=== PATIENT | female | born 2000 | race Two or more races ===

== ENCOUNTER 2024-11-02 13:27 | Emergency (ER) | payer MEDICAID, SELFPAY ==
[2024-11-02 13:29] VITALS: BMI 31.6
[2024-11-02 13:35] VITALS: BP 111/70; PULSE 88; RESP 18; TEMP 36.9; O2SAT 99
--- NOTE | 2024-11-02 13:44 | PD.EDNV ---
Nausea/Vomit./Diarrhea-RME/HPI General Chief complaint: Nausea/Vomiting/Diarrhea Stated complaint: DIARRHEA, VOMITING, DECREASE URINATION Time Seen by Provider: 11/02/24 13:50 Source: patient Arrival date/time: 11/02/24 13:27 24-year-old female with no known medical history presents to the emergency room with a chief complaint of diarrhea and vomiting x 2 days. Patient states she is also had a decreased urine output. Patient denies any abdominal pain or dysuria. Mode of arrival: ambulatory Limitations: no limitations Related Data Home Medications ?Medication ?Instructions ?Recorded ?Confirmed buspirone 10 mg tablet 10 mg PO TID 12/10/19 03/07/20 divalproex 500 mg tablet,extended 500 mg PO BID 12/10/19 03/07/20 release 24 hr (Depakote ER) fluoxetine 40 mg capsule 40 mg PO QDAY 12/10/19 03/07/20 aripiprazole 30 mg tablet tab 06/29/22 aspirin 81 mg tablet,delayed tab 06/29/22 release buspirone 30 mg tablet tab 06/29/22 folic acid 1 mg tablet tab 06/29/22 lamotrigine 150 mg tablet tab 06/29/22 nitrofurantoin cap 06/29/22 monohydrate/macrocrystals 100 mg capsule vits no.126-ferrous fum tab 06/29/22 28 mg iron-folic acid 800 mcg tablet (Classic ) Previous Rx's ?Medication ?Instructions ?Recorded famotidine 20 mg tablet 20 mg PO QDAY #10 tabs 02/01/24 nitrofurantoin 100 mg PO Q12H 5 days #10 caps 11/02/24 monohydrate/macrocrystals 100 mg capsule (Macrobid) ondansetron 4 mg disintegrating 4 mg PO Q8H PRN nausea and 11/02/24 tablet vomiting #14 tabs Allergies Allergy/AdvReac Type Severity Reaction Status Date / Time Influenza Virus Vaccines Allergy Severe Hives Verified 11/02/24 13:28 Review of Systems Review of Systems Systems Reviewed: All systems reviewed, normal except as documented Constitutional Constitutional: Reports system reviewed and no additional complaints, except as documented, Denies fatigue, Denies fever(s), Denies headache(s) and Denies weakness Eyes Eyes: Reports system reviewed and no additional complaints, except as documented, Denies blurry vision and Denies change in vision ENT Ears, Nose, Mouth, and Throat: Reports system reviewed and no additional complaints, except as documented, Denies otalgia, Denies headache(s), Denies nasal congestion, Denies throat swelling and Denies vertigo Cardiovascular Cardiovascular: Reports system reviewed and no additional complaints, except as documented, Denies chest pain, Denies dyspnea and Denies dyspnea on exertion Respiratory Respiratory: Reports system reviewed and no additional complaints, except as documented, Denies chest congestion, Denies cough, Denies dyspnea, Denies dyspnea on exertion and Denies wheezing Gastrointestinal Gastrointestinal: Reports system reviewed and no additional complaints, except as documented, Denies abdominal pain, Denies cramping, Reports diarrhea, Reports nausea and Reports vomiting Genitourinary Genitourinary: Reports system reviewed and no additional complaints, except as documented, Denies abnormal vaginal bleeding, Denies hematuria, Denies pelvic pain and Denies vaginal discharge Musculoskeletal Musculoskeletal: Reports system reviewed and no additional complaints, except as documented and Denies back pain Integumentary/Breasts Skin/Breast: Reports system reviewed and no additional complaints, except as documented and Denies wounds Neurologic Neurologic: Reports system reviewed and no additional complaints, except as documented, Denies confusion, Denies headache(s), Denies lack of coordination, Denies vertigo and Denies weakness Psychiatric Psychiatric: Reports system reviewed and no additional complaints, except as documented, Denies anxiety, Denies confusion, Denies depression, Denies paranoia, Denies suicidal ideation and Denies tactile hallucinations Endocrine Endocrine: Reports system reviewed and no additional complaints, except as documented and Denies fatigue Hematologic/Lymphatic Hematologic/Lymphatic: Reports system reviewed and no additional complaints, except as documented and Denies lymphadenopathy Allergic/Immunologic Allergic/Immunologic: Reports system reviewed and no additional complaints, except as documented, Denies throat swelling, Denies urticaria and Denies wheezing Past Medical History Past Medical History NEUROLOGIC: Negative Neurological Disorders or Seizures CARDIAC: Negative Cardiac Disorders or Congestive Heart Failure RESPIRATORY: Negative Chronic Obstructive Pulmonary Disease (COPD) or Asthma GASTROINTESTINAL: Positive Gastrointestinal Disorders, Gall Bladder Disease (leaking gallbladder) and Gastroesophageal Reflux Disease GENITOURINARY: Negative Genitourinary Disorders or Renal Disease REPRODUCTIVE: Negative Endometriosis, Genital Herpes, Gonorrhea, Pelvic Inflammatory Disease, Previous Pregnancies, Syphilis or Uterine Prolapse MUSCULOSKELETAL: Negative Musculoskeletal Disorders ENDOCRINE: Negative Endocrine Disorders, Diabetes Mellitus Type 1 or Diabetes Mellitus Type 2 HEMATOLOGIC: Positive Blood Disorders and Anemia; Negative Leukemia, Hemophilia, Thalassemia, Sickle Cell Disease or Clotting Problems PSYCHO/SOCIAL: Positive Psychiatric Problems, Depression and Anxiety OTHER HISTORY: Negative Hospitalization, Autoimmune Disease, Down Syndrome, Developmental Delay, Shingles, Falls, Blood Transfusions or Anesthesia Reactions Family History FAMILY HISTORY: Positive Family Psychiatric Problems (depression-paternal granmother) and Family Gastrointestinal Problems (ulcertive colitis-sister); Negative Family Respiratory Disorders, Family Cardiac Disorders, Family Cancer, Family Surgery or Family Anesthesia Reaction Surgical History SURGICAL: Negative Section Social History SMOKING STATUS: Never smoker SECOND HAND EXPOSURE: No SUBSTANCE USE: marijuana (mother states she hasnt had any etoh since being on probation ) ED Exam General Limitations: Present no limitations General appearance: Present alert and in no apparent distress Head Head exam: Present atraumatic Eye Eye exam: Present normal appearance, PERRL and EOMI ENT ENT exam: Present normal exam, normal oropharynx and mucous membranes moist Neck Neck exam: Present normal inspection, full ROM and trachea midline Chest Chest inspection: Present normal inspection and symmetric chest wall rise Respiratory Respiratory exam: Present normal lung sounds bilaterally Cardiovascular Cardiovascular exam: Present regular rate, normal rhythm and normal heart sounds Abdominal Exam Abdominal exam: Present soft and normal bowel sounds; Absent distention, tenderness, guarding, rebound or rigidity Extremities Exam Extremities exam: Present normal inspection and full ROM Back Exam Back exam: Present normal inspection and full ROM Neurological Exam Neurological exam: Present alert, oriented X3 and CN II-XII intact Psychiatric Psychiatric exam: Present normal affect and normal mood Skin Skin exam: Present warm, dry, intact and normal color Course Quality Measures none Orders Category Date Time Status CBC Stat Lab 11/02/24 13:49 Completed CMP [Comprehensive Metabolic Panel] Stat Lab 11/02/24 13:49 Completed UA, C/S IF [Urinalysis, C/S if Indicated] Stat Lab 11/02/24 14:24 Completed Ondansetron Odt [Zofran Odt] Med 11/02/24 13:44 Discontinued 4 mg PO X1 ONE Vital Signs Vital signs: Vital Signs Temperature 98.5 F 11/02/24 13:35 Pulse Rate 88 11/02/24 13:35 Respiratory Rate 18 11/02/24 13:35 Blood Pressure 111/70 11/02/24 13:35 Pulse Oximetry (%) 99 11/02/24 13:35 Oxygen Delivery Method Room Air 11/02/24 13:35 O2 saturation 99% within normal limits Nausea/Vomiting/Diarrhea MDM Narrative MDM Narrative:: 24-year-old female with no known medical history presents to the emergency room with a chief complaint of diarrhea and vomiting x 2 days. Patient states she is also had a decreased urine output. Patient denies any abdominal pain or dysuria. Clinically the patient appears nontoxic and in no apparent distress Physical examination shows a soft nontender abdomen with active bowel sounds to all 4 quadrants. The patient is complaining of vomiting. Zofran was given to the patient the patient was reevaluated in 1 hour with significant improvement to her symptoms. The urinalysis shows a urinary tract infection. Antibiotics are sent to the patient's pharmacy the patient was educated to follow-up with primary care provider and return to the emergency room for any evidence of worsening signs or symptoms Patient data External records reviewed:: [facility] previous records Clinical information provided by:: patient Social determinants that could affect healthcare access:: none Patient has the following chronic illnesses:: No chronic illness How is presenting disease/condition affected by chronic disease/condition?: no chronic disease Evaluation data The following diagnostics were reviewed and interpreted by me:: lab results and radiology exam(s) Lab and/or radiology exams considered but not ordered:: Labs and radiology exams considered and ordered Interpretation Summary: N/A Medications / Prescriptions Medications / Prescriptions considered but not ordered:: Medication given Medication administrations:: Medication Administration History Discontinued Medications Ondansetron HCl (Ondansetron Odt 4 Mg Tabrap) 4 mg PO X1 ONE; Protocol Stop: 11/02/24 13:45 Last Admin: 11/02/24 13:52 Dose: 4 mg Documented By: Medication given Consultations Consultation(s) initiated? (list below): No Diagnosis Nausea Differential Diagnosis: traveler's diarrhea, food poisoning, gastroenteritis, drug-induced nausea and vomiting, dehydration and other (Urinary tract infection) Most likely diagnosis given after review of the tests above:: Urinary tract infection Admission Indicated Admission indicated?: not indicated Admission Request Was there a request for admission?: No Disposition Plan Disposition Plan: Discharge Discharge Attestation Discharge Attestation: The patient and all family members were given an opportunity to ask questions and understood the discharge instructions. Discharge instructions specifically effects, indications for sooner follow up or return to the emergency department, and the expected course of current diagnosis. Patient condition: Stable Discharge Plan Plan Patient Disposition: HOME (Self Care) Disposition Comment: Stable Prescriptions/Referrals Prescriptions/Med Rec: New ondansetron 4 mg tablet,disintegrating 4 mg PO Q8H PRN (Reason: nausea and vomiting) Qty: 14 0RF nitrofurantoin monohyd/m-cryst [Macrobid] 100 mg capsule 100 mg PO Q12H 5 Days Qty: 10 0RF Rx Instructions: must administer with a meal/food No Action fluoxetine 40 mg Capsule 40 mg PO QDAY buspirone 10 mg Tablet 10 mg PO TID divalproex [Depakote ER] 500 mg Tablet Extended Release 24 Hr 500 mg PO BID lamotrigine 150 mg tablet Patient Comments: TAKE 1 TABLET BY MOUTH EVERY DAY aspirin 81 mg tablet,delayed release (DR/EC) Patient Comments: TAKE 1 TABLET BY MOUTH EVERY DAY buspirone 30 mg tablet folic acid 1 mg tablet aripiprazole 30 mg tablet Patient Comments: TAKE 1 TABLET BY MOUTH EVERY DAY nitrofurantoin monohyd/m-cryst 100 mg capsule Classic 28 mg iron- 800 mcg tablet Patient Comments: TAKE 1 TABLET BY MOUTH EVERY DAY DIRECTED famotidine 20 mg tablet 20 mg PO QDAY Qty: 10 0RF Referrals: Bridger Barnett PA-C [Primary Care Provider] - In 1 week Problem List Clinical Impression: Urinary tract infection Patient/Caregiver Discharge Instructions Education Materials: ED CYSTITIS Female Adult Additional Instructions: Please follow-up with your primary care provider in the next 24 to 48 hours. Your blood work was negative for any acute findings or any signs of dehydration. Medication was sent to your pharmacy to help you with your vomiting. Your urinalysis was positive for urinary tract infection. Antibiotics are sent to your pharmacy please pick them up and take them as indicated. For any evidence of worsening signs or symptoms please return to the emergency room immediately Print Language: Cymro Stand Alone Forms: Nany Award Info., Patient Portal Info Letter ETHAN/MEREDITH Supervising Physician MIKE Supervising Physician: Dr Fam
[2024-11-02] MEDS: ONDANSETRON ODT 4 MG TABRAP PO (13:52)
[2024-11-02 13:58] LABS: Basophils # (Auto) 0.1 Thou/mm3 (0.0-0.2); Basophils % (Auto) 1 % (0-2.5); Eosinophils # (Auto) 0.3 Thou/mm3 (0.0-0.5); Eosinophils % (Auto) 2 % (0-10); Hematocrit 40.3 % (36.0-46.0); Hemoglobin 13.6 g/dL (12.0-16.0); Immature Granulocytes % (Auto) 0 % (0-0); Immature Granulocytes Auto 0.04 Thou/mm3 (0.00-0.00); Lymphocytes # (Auto) 2.4 Thou/mm3 (1.0-4.8); Lymphocytes % (Auto) 18 % (10-50); Mean Corpuscular HGB Conc 33.7 g/dl (31.0-37.0); Mean Corpuscular Hemoglobin 28.3 pg (25.0-35.0); Mean Corpuscular Volume 84 fL (80-100); Monocytes # (Auto) 0.8 Thou/mm3 (0.0-0.8); Monocytes % (Auto) 6 % (0-12); Neutrophils # (Auto) 9.5 Thou/mm3 (1.8-7.7); Neutrophils % (Auto) 73 % (37-80); Nucleated Red Blood Cell % 0 /100 WBC (0); Platelet Count 382 Thou/mm3 (140-440); RDW Standard Deviation 41.7 fL (36.4-46.3)
[2024-11-02 14:19] LABS: Alanine Aminotransferase 13 U/L (10-49); Albumin, Serum 4.9 gm/dL (3.5-5.0); Alkaline Phosphatase 72 U/L (46-116); Anion Gap 8 (7-16); Aspartate Amino Transferase 16 U/L (0-34); BUN/Creatinine Ratio 11 Ratio (12-20); Bilirubin,Total 0.5 mg/dL (0.3-1.2); Blood Urea Nitrogen 8 mg/dL (9-23); Calcium 9.3 mg/dL (8.3-10.6); Calcium (Corrected) 9.3 mg/dL (8.5-10.1); Carbon Dioxide 25.8 mMol/L (20.0-31.0); Chloride 105 mMol/L (98-107); Creatinine (Component) 0.7 mg/dL (0.6-1.3); Globulin 2.5 gm/dL (2.3-3.5); Glucose 91 mg/dL (74-106); Osmolality,Calculated 275 (275-295); Potassium 3.8 mMol/L (3.4-5.1); Sodium 139 mMol/L (136-145); Total Protein 7.4 gm/dL (5.7-8.2); eGFR > 60 See Note
[2024-11-02 14:27] LABS: Collection Type, Urine Clean Catch
[2024-11-02 14:43] LABS: Bacteria,Urine Rare; Bilirubin,Urine Negative (Negative); Blood,Urine 3+ (Negative); Clarity,Urine Turbid (Clear/Hazy); Color,Urine Lt-Yellow (Lt Yel-Yel); Culture Indicated,Urine Contaminated; Glucose, Urine Negative (Negative); Ketones,Urine Negative (Negative); Leukocyte Esterase,Urine Positive (Negative); Nitrite,Urine Negative (Negative); Protein,Urine Negative (Neg - Trace); RBC,Urine 16 /hpf (0-3); Specific Gravity,Urine 1.008 (1.001-1.035); Squamous Epithelial Cell,Urine 21 /hpf (0-5); Urobilinogen,Urine Negative mg/dL (0.0-1.0); WBC,Urine 14 /hpf (0-5)
== END 2024-11-02 15:28 | disposition home or self-care (01) ==
PROVIDERS: Nurse Practitioner Family; Emergency Provider Emergency Medicine; PCP Physician Assistant
DX: N39.0 Urinary tract infection, site not specified (principal)
CPT/HCPCS: 36415; 80053; 81001; 85025; 99283; Q0162

== ENCOUNTER 2025-03-21 09:10 | Day surgery (SDC) | payer MEDICAID, SELFPAY ==
[2025-03-20 08:43] LABS: HCG Qualitative,Urine Negative
[2025-03-20 15:00] VITALS: BMI 29.4
[2025-03-21] VITALS (8 sets, daily range): BP systolic 109–118; BP diastolic 70–84; PULSE 82–99; RESP 12–18; TEMP 36.1–36.8; O2SAT 95–100; BMI 29.4
[2025-03-21] MEDS: BENZOCAINE 20% (Hurricaine) SPRAY 1 DOSE TOP (11:04)
[2025-03-21] MEDS: RINGERS LACTATED 1000 ML 1,000 ML 125 ML IV (11:04)
[2025-03-21] MEDS: fentaNYL CIT INJ 50 mCg/ML AMP 2ML (ASD USE ONLY) IVP (11:05)
[2025-03-21] MEDS: DiphenhydrAMINE INJ 50 MG/ML VIAL 25 MG IVP (11:05)
[2025-03-21] MEDS: MIDAZOLAM INJ 1 MG/ML VIAL 2 ML (ASD USE ONLY) 2 MG IVP (11:05)
== END 2025-03-21 12:01 | disposition home or self-care (01) ==
PROVIDERS: PCP Physician Assistant; Referring Provider Internal Medicine Gastroenterology; Visit Provider Internal Medicine Gastroenterology
PROC: (CPT 43239; principal; 2025-03-21 10:00)
DX: K29.70 Gastritis, unspecified, without bleeding (principal); K64.9 Unspecified hemorrhoids; K31.89 Other diseases of stomach and duodenum
CPT/HCPCS: 43239; 81025; J1200; J2250; J3010; J7120; A9270

== ENCOUNTER 2025-03-23 09:00 | Day surgery (SDC) | payer MEDICAID, SELFPAY ==
[2025-03-22 10:47] VITALS: BMI 29.4
[2025-03-23] VITALS (10 sets, daily range): BP systolic 116–140; BP diastolic 76–96; PULSE 87–109; RESP 13–19; TEMP 36.7–36.8; O2SAT 96–100; BMI 29.6
[2025-03-23] MEDS: RINGERS LACTATED 1000 ML 1,000 ML 125 ML IV (11:48)
[2025-03-23] MEDS: DiphenhydrAMINE INJ 50 MG/ML VIAL 25 MG IVP (11:50)
[2025-03-23] MEDS: fentaNYL CIT INJ 50 mCg/ML AMP 2ML (ASD USE ONLY) IVP (12:01)
[2025-03-23] MEDS: MIDAZOLAM INJ 1 MG/ML VIAL 2 ML (ASD USE ONLY) 2 MG IVP (12:01)
== END 2025-03-23 13:09 | disposition home or self-care (01) ==
PROVIDERS: PCP Physician Assistant; Referring Provider Internal Medicine Gastroenterology; Visit Provider Internal Medicine Gastroenterology
PROC: 0DBE8ZX Excision of Large Intestine, Via Natural or Artificial Opening Endoscopic, Diagnostic (ICD-10-PCS; CPT 45380; principal; 2025-03-23 10:30)
DX: K52.9 Noninfective gastroenteritis and colitis, unspecified (principal); K64.9 Unspecified hemorrhoids; K31.89 Other diseases of stomach and duodenum
CPT/HCPCS: 45380; A4217; J1200; J2250; J3010; J7120

== ENCOUNTER 2025-07-30 06:15 | Emergency (ER) | payer MEDICAID, SELFPAY ==
[2025-07-30 06:17] VITALS: BMI 29.1
[2025-07-30 06:33] VITALS: BP 110/70; PULSE 107; RESP 18; TEMP 36.7; O2SAT 100
--- NOTE | 2025-07-30 06:36 | XR_ITS ---
EXAMINATION: PA lateral chest 2 views TECHNIQUE: Upright PA and lateral chest 2 views Date and time: July 30, 2025, 0648 hours INDICATIONS: Shortness of breath cough and congestion beginning 3 months ago FINDINGS: Normal heart size. No lobar pneumonia or pulmonary edema. The osseous tractors are intact IMPRESSION: No active disease
--- NOTE | 2025-07-30 06:37 | EDNOTE_ITS ---
<Statement entered by Kimberly Solano MD - 07/30/25 13:38> As co-signing physician, I was present and available for consult prn. I concur with the plan and care as documented by the midlevel provider. Upper Respiratory Inf. RME/HPI General Chief Complaint: Flu Like Symptoms Stated Complaint: COUGH AND CONGESTION Time Seen by Provider: 07/30/25 06:27 Source: patient Arrival date/time: 07/30/25 06:15 25-year-old female with no known medical history presents to the emergency room with a chief complaint of cough and congestion x 1 week Mode of arrival: ambulatory Limitations: no limitations Related Data Home Medications ?Medication ?Instructions ?Recorded ?Confirmed buspirone 10 mg tablet 2.5 mg PO TID PRN anxiety 03/22/25 atomoxetine 40 mg capsule 40 mg PO QDAY 03/20/2503/22 buspirone 5 mg tablet 10 mg PO HS 03/20/25 5 Held on 03/23/25. Instructions: Resume on 03/24/25. cetirizine 10 mg tablet 10 mg PO BID 03/20/25 esomeprazole magnesium 40 mg 40 mg PO QDAY 03/20/25 capsule,delayed release fluticasone furoate 100 1 inh inhalation QDAY 03/22/25 mcg/actuation blister powder for inhalation (Arnuity Ellipta) propranolol 10 mg tablet 10 mg PO HS PRN anxiety 02/2703/22/25 spironolactone 50 mg tablet 50 mg PO QDAY 03/20/25 semaglutide (weight loss) 1.7 1.7 mg subcut Q7D 03/23/25 mg/0.75 mL subcutaneous pen injector (Wegovy) Allergies Allergy/AdvReac Type Severity Reaction Status Date / Time Influenza Virus Vaccines Allergy Severe Hives Verified 07/30/25 06:22 Review of Systems Review of Systems Systems Reviewed: All systems reviewed, normal except as documented Constitutional Constitutional: Reports system reviewed and no additional complaints, except as documented, Denies fatigue, Denies fever(s), Denies headache(s) and Denies weakness Eyes Eyes: Reports system reviewed and no additional complaints, except as documented, Denies blurry vision and Denies change in vision ENT Ears, Nose, Mouth, and Throat: Reports system reviewed and no additional complaints, except as documented, Denies otalgia, Denies headache(s), Denies nasal congestion, Denies throat swelling and Denies vertigo Cardiovascular Cardiovascular: Reports system reviewed and no additional complaints, except as documented, Denies chest pain, Reports dyspnea and Denies dyspnea on exertion Respiratory Respiratory: Reports system reviewed and no additional complaints, except as documented, Reports chest congestion, Reports cough, Reports dyspnea, Denies dyspnea on exertion and Denies wheezing Gastrointestinal Gastrointestinal: Reports system reviewed and no additional complaints, except as documented, Denies abdominal pain, Denies cramping, Denies nausea and Denies vomiting Genitourinary Genitourinary: Reports system reviewed and no additional complaints, except as documented Musculoskeletal Musculoskeletal: Reports system reviewed and no additional complaints, except as documented and Denies back pain Integumentary/Breasts Skin/Breast: Reports system reviewed and no additional complaints, except as documented and Denies wounds Neurologic Neurologic: Reports system reviewed and no additional complaints, except as documented, Denies confusion, Denies headache(s), Denies lack of coordination, Denies vertigo and Denies weakness Psychiatric Psychiatric: Reports system reviewed and no additional complaints, except as documented, Denies anxiety, Denies confusion, Denies depression, Denies paranoia, Denies suicidal ideation and Denies tactile hallucinations Endocrine Endocrine: Reports system reviewed and no additional complaints, except as documented and Denies fatigue Hematologic/Lymphatic Hematologic/Lymphatic: Reports system reviewed and no additional complaints, except as documented and Denies lymphadenopathy Allergic/Immunologic Allergic/Immunologic: Reports system reviewed and no additional complaints, except as documented, Denies throat swelling, Denies urticaria and Denies wheezing Past Medical History Past Medical History NEUROLOGIC: Negative Neurological Disorders or Seizures CARDIAC: Negative Cardiac Disorders or Congestive Heart Failure RESPIRATORY: Negative Chronic Obstructive Pulmonary Disease (COPD) or Asthma GASTROINTESTINAL: Positive Gastrointestinal Disorders, Gall Bladder Disease, Hiatal Hernia and Gastroesophageal Reflux Disease GENITOURINARY: Negative Genitourinary Disorders or Renal Disease REPRODUCTIVE: Positive Previous Pregnancies (); Negative Endometriosis, Genital Herpes, Gonorrhea, Pelvic Inflammatory Disease, Syphilis or Uterine Prolapse MUSCULOSKELETAL: Negative Musculoskeletal Disorders ENDOCRINE: Negative Endocrine Disorders, Diabetes Mellitus Type 1 or Diabetes Mellitus Type 2 HEMATOLOGIC: Positive Blood Disorders and Anemia; Negative Leukemia, Hemophilia, Thalassemia, Sickle Cell Disease or Clotting Problems PSYCHO/SOCIAL: Positive Psychiatric Problems, Bipolar Disorder, Depression, Anxiety, Attention Deficit Hyperactivity Disorder and Post Traumatic Stress Disorder OTHER HISTORY: Negative Hospitalization, Autoimmune Disease, Down Syndrome, Developmental Delay, Shingles, Falls, Blood Transfusions or Anesthesia Reactions Family History FAMILY HISTORY: Positive Family Psychiatric Problems and Family Gastrointestinal Problems; Negative Family Respiratory Disorders, Family Cardiac Disorders, Family Cancer, Family Surgery or Family Anesthesia Reaction Surgical History SURGICAL: Negative Section Social History SMOKING STATUS: Never smoker SECOND HAND EXPOSURE: No SUBSTANCE USE: marijuana (mother states she hasnt had any etoh since being on probation ) ED Exam General Limitations: Present no limitations General appearance: Present alert and in no apparent distress Head Head exam: Present atraumatic Eye Eye exam: Present normal appearance, PERRL and EOMI ENT ENT exam: Present normal exam, normal oropharynx and mucous membranes moist Neck Neck exam: Present normal inspection, full ROM and trachea midline Chest Chest inspection: Present normal inspection and symmetric chest wall rise Respiratory Respiratory exam: Present normal lung sounds bilaterally; Absent respiratory distress, wheezes, stridor, accessory muscle use or prolonged expiratory phase Cardiovascular Cardiovascular exam: Present regular rate, normal rhythm and normal heart sounds Abdominal Exam Abdominal exam: Present soft and normal bowel sounds Extremities Exam Extremities exam: Present normal inspection and full ROM Back Exam Back exam: Present normal inspection and full ROM Neurological Exam Neurological exam: Present alert, oriented X3 and CN II-XII intact Psychiatric Psychiatric exam: Present normal affect and normal mood Skin Skin exam: Present warm, dry, intact and normal color Course Quality Measures none Orders Category Date Time Status Bedside COVID-19 Antigen Test NOW Care 07/30/25 06:36 Completed XR chest 2V Stat Exams 07/30/25 06:36 Completed Influenza A & B Rapid Panel Stat Lab 07/30/25 06:57 Completed Albuterol/Ipratr Rt Brittany [Duoneb Rt Brittany] Med 07/30/25 06:36 Discontinued 3 ml INH X1 ONE Dexamethasone Inj [Decadron Inj] Med 07/30/25 06:36 Discontinued 10 mg PO X1 ONE Vital Signs Vital signs: Vital Signs Temperature 98.1 F 07/30/25 06:33 Pulse Rate 107 H 07/30/25 06:33 Respiratory Rate 18 07/30/25 06:33 Blood Pressure 110/70 07/30/25 06:33 Pulse Oximetry (%) 100 07/30/25 06:33 Oxygen Delivery Method Room Air 07/30/25 06:33 Upper Respiratory Infection MDM Narrative MDM Narrative:: 25-year-old female with no known medical history presents to the emergency room with a chief complaint of cough and congestion x 1 week Patient is hemodynamically stable and in no apparent distress Physical examination shows clear bilateral lung sounds there is no wheezing or any abnormal breath sounds Chest x-ray was completed and was negative for any pneumonic infiltrates. COVID-19 and influenza test were both negative Patient was discharged and educated to follow-up with primary care provider in the next 24 to 48 hours and return to the emergency room for any evidence of worsening signs or symptoms Patient data External records reviewed:: [facility] previous records Clinical information provided by:: patient Social determinants that could affect healthcare access:: none Patient has the following chronic illnesses:: No chronic illness How is presenting disease/condition affected by chronic disease/condition?: no chronic disease Evaluation data The following diagnostics were reviewed and interpreted by me:: lab results and radiology exam(s) Lab and/or radiology exams considered but not ordered:: Labs and radiology exams considered and ordered Interpretation Summary: Chest [id number]: Normal heart size. No lobar pneumonia or pulmonary edema. The osseous tractors are intact IMPRESSION: No active disease Medications / Prescriptions Medications or Prescriptions considered but not ordered:: Medication given Medication administrations:: Medication Administration History Discontinued Medications Albuterol/Ipratropium (Albuterol/Ipratropium (Duoneb) Rt Brittany 3 Ml Nebu) 3 ml INH X1 ONE Stop: 07/30/25 06:37 Last Admin: 07/30/25 08:02 Dose: 3 ml Documented By: SCOUT Dexamethasone Sodium Phosphate (Dexamethasone Sod Phos Inj 10 Mg/Ml Vial) 10 mg PO X1 ONE Stop: 07/30/25 06:37 Last Admin: 07/30/25 07:45 Dose: 10 mg Documented By: KM Medication given Consultations Consultation(s) initiated? (list below): No Diagnosis Upper Respiratory Differential Diagnosis: upper respiratory infection, viral infection, bronchitis, influenza and other (Community-acquired pneumonia) Most likely diagnosis given after review of the tests above:: Community-acquired pneumonia Admission Indicated Admission indicated?: not indicated Admission Request Was there a request for admission?: No Disposition Plan Disposition Plan: Discharge Discharge Attestation Discharge Attestation: The patient and all family members were given an opportunity to ask questions and understood the discharge instructions. Discharge instructions specifically effects, indications for sooner follow up or return to the emergency department, and the expected course of current diagnosis. Patient condition: Stable Discharge Plan Plan Patient Disposition: HOME (Self Care) Discharge Disposition comment: Stable Prescriptions/Referrals Prescriptions/Med Rec: No Action buspirone 10 mg Tablet 2.5 mg PO TID PRN (Reason: anxiety) atomoxetine 40 mg capsule 40 mg PO QDAY Patient Comments: Take 2 capsule by mouth once a day Arnuity Ellipta 100 mcg/actuation blister with device 1 inh INHALATION QDAY Patient Comments: INHALE 1 PUFF INTO THE LUNGS EVERY DAY FOR 30 DAYS buspirone 5 mg tablet 10 mg PO HS propranolol 10 mg tablet 10 mg PO HS PRN (Reason: anxiety) esomeprazole magnesium 40 mg capsule,delayed release(DR/EC) 40 mg PO QDAY Patient Comments: TAKE 1 CAPSULE BY MOUTH EVERY DAY 1/2 TO 1 HOUR BEFORE MORNING MEAL cetirizine 10 mg tablet 10 mg PO BID Patient Comments: TAKE 1 TABLET BY MOUTH TWICE A DAY spironolactone 50 mg tablet 50 mg PO QDAY Wegovy 1.7 mg/0.75 mL pen injector 1.7 mg SUBCUT Q7D Patient Comments: INJECT 0.75 MILLILITERS SUBCUTANEOUSLY ONE TIME PER WEEK Referrals: Lorne Tatum MD [Primary Care Provider, Family Practice] - In 1 week Problem List Clinical Impression: Upper respiratory infection Patient/Caregiver Discharge Instructions Education Materials: ED URI, Viral, No Abx (Adult) Additional Instructions: Please follow-up with your primary care provider in the next 24 to 48 hours Your COVID-19 and influenza test were both negative Your chest x-ray was negative for any pneumonia For any evidence of worsening signs or symptoms return to the emergency room immediately Print Language: Korean Stand Alone Forms: Nany Award Info., Work/School Release, Patient Portal Info Letter PA/MEREDITH Supervising Physician PA/MEREDITH Supervising Physician: Dr. Swenson
[2025-07-30] MEDS: DEXAMETHASONE SOD PHOS INJ 10 MG/ML VIAL PO (07:45)
[2025-07-30] MEDS: ALBUTEROL/IPRATROPIUM (Duoneb) RT SOL 3 ML NEBU INH (08:02)
[2025-07-30 08:03] VITALS: PULSE 76; RESP 18; O2SAT 99
[2025-07-30 08:14] LABS: Influenza A Ag Negative; Influenza B Ag Negative
== END 2025-07-30 08:37 | disposition home or self-care (01) ==
PROVIDERS: Nurse Practitioner Family; Emergency Provider Emergency Medicine; PCP Family Medicine
DX: J06.9 Acute upper respiratory infection, unspecified (principal)
CPT/HCPCS: 71046; 87502; 87635; 94640; 99283; A9270; J1100

== ENCOUNTER 2025-07-31 12:20 | Emergency (ER) | payer MEDICAID, SELFPAY ==
[2025-07-31] VITALS (8 sets, daily range): BP systolic 104–123; BP diastolic 58–91; PULSE 103–113; RESP 13–19; TEMP 36.9–38.1; O2SAT 95–100; BMI 29.1
--- NOTE | 2025-07-31 12:58 | EKG_ITS ---
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
--- NOTE | 2025-07-31 12:58 | XR_ITS ---
Examination: Transvaginal ultrasound of the pelvis, complete Technique: Transvaginal sonographic images pelvis performed using gomez scale imaging Exam date and time: 07/31/2025 at 2:22 p.m. INDICATION: Vaginal bleeding for 1 month, heavy irregular periods for 3 months. IUD placed October 2024. COMPARISON: Transabdominal pelvic ultrasound 07/30/2023 FINDINGS: The uterus is anteverted and measures 8.4 x 4.6 x 5.5 cm in size. No evidence for uterine fibroids. Nabothian cysts noted. An IUD is now seen in the appropriate position at the fundus. No apparent abnormal thickening of the endometrium. The right ovary measures 4.5 x 3.2 x 3.7 cm demonstrates intact right ovarian blood flow. Right ovarian cysts are present, the dominant measuring 4.0 x 2.6 x 2.9 cm, mildly complex with layering echogenic material. This could represent a hemorrhagic cyst. The left ovary measures 3.3 x 2.4 x 2.7 cm and contains small follicles. Intact left ovarian blood flow. No adnexal masses or free pelvic fluid. IMPRESSION: Anteverted uterus with IUD in appropriate position. No evidence for uterine fibroids. Bilateral ovarian cysts, including dominant mildly complex cyst with layering debris in the right ovary measuring 4.0 x 2.6 x 2.9 cm. No evidence for ovarian torsion on either side.
--- NOTE | 2025-07-31 12:58 | XR_ITS ---
CLINICAL INDICATION: chestpain TECHNIQUE: XR chest 1V, 07/31/2025 at 1:51 p.m. COMPARISON: Chest radiographs 07/30/2025 INDICATION: Chest pain, weakness, feeling of going to pass out. Symptoms for the past 4 days. FINDINGS: The cardiomediastinal silhouette is within normal limits. No airspace opacities suggestive of pneumonia. No mass detected. No pleural effusion or pneumothorax. No acute osseous abnormality detected. IMPRESSION: No radiographic evidence for acute cardiopulmonary abnormality. No significant interval change since the comparison study. - This report was generated utilizing speech recognition software. -
[2025-07-31 13:37] LABS: Collection Type, Urine Clean Catch
[2025-07-31 13:39] LABS: Basophils # (Auto) 0.1 Thou/mm3 (0.0-0.2); Basophils % (Auto) 0 % (0-2.5); Eosinophils # (Auto) 0.2 Thou/mm3 (0.0-0.5); Eosinophils % (Auto) 1 % (0-10); Hematocrit 24.9 % (36.0-46.0); Immature Granulocytes Auto 0.07 Thou/mm3 (0.00-0.00); Lymphocytes # (Auto) 2.7 Thou/mm3 (1.0-4.8); Lymphocytes % (Auto) 16 % (10-50); Mean Corpuscular HGB Conc 29.7 g/dl (31.0-37.0); Mean Corpuscular Hemoglobin 21.5 pg (25.0-35.0); Mean Corpuscular Volume 72 fL (80-100); Monocytes # (Auto) 1.4 Thou/mm3 (0.0-0.8); Monocytes % (Auto) 8 % (0-12); Neutrophils # (Auto) 12.2 Thou/mm3 (1.8-7.7); Neutrophils % (Auto) 73 % (37-80); Nucleated Red Blood Cell # 0.00 Thou/mm3 (0.00-0.00); Nucleated Red Blood Cell % 0 /100 WBC (0); Platelet Count 440 Thou/mm3 (140-440); RDW Standard Deviation 39.2 fL (36.4-46.3); Red Blood Count 3.44 Miln/mm3 (4.00-5.20); White Blood Count 16.6 Thou/mm3 (3.6-11.0)
[2025-07-31 13:50] LABS: Hemoglobin 7.4 g/dL (12.0-16.0)
[2025-07-31 13:53] LABS: B-Type Natriuretic Peptide < 20 pg/mL (0-100)
[2025-07-31 13:55] LABS: Alanine Aminotransferase 14 U/L (10-49); Albumin, Serum 4.7 gm/dL (3.5-5.0); Albumin/Globulin Ratio 2.5 (1.2-2.2); Alkaline Phosphatase 62 U/L (46-116); Anion Gap 9 (7-16); Aspartate Amino Transferase 22 U/L (0-34); BUN/Creatinine Ratio 11 Ratio (12-20); Bilirubin,Total 0.4 mg/dL (0.3-1.2); Blood Urea Nitrogen 9 mg/dL (9-23); Calcium 9.5 mg/dL (8.3-10.6); Calcium (Corrected) 9.5 mg/dL (8.5-10.1); Carbon Dioxide 25.2 mMol/L (20.0-31.0); Chloride 106 mMol/L (98-107); Creatinine (Component) 0.8 mg/dL (0.6-1.3); Estimated Creatinine Clearance 110.0 mL/min (>60); Globulin 1.9 gm/dL (2.3-3.5); Glucose 91 mg/dL (74-106); Osmolality,Calculated 278 (275-295); Potassium 4.2 mMol/L (3.4-5.1); Sodium 140 mMol/L (136-145); Total Protein 6.6 gm/dL (5.7-8.2); Troponin I < 0.002 ng/mL (0.0-0.045); eGFR > 60 See Note
[2025-07-31 14:07] LABS: HCG Qualitative,Urine Negative
[2025-07-31 14:16] LABS: Bilirubin,Urine Negative (Negative); Blood,Urine 3+ (Negative); Clarity,Urine Turbid (Clear/Hazy); Glucose, Urine Negative (Negative); Ketones,Urine Negative (Negative); Leukocyte Esterase,Urine Positive (Negative); Nitrite,Urine Negative (Negative); PH,Urine 5.5 (5.0-7.0); Protein,Urine 1+ (Neg - Trace); RBC,Urine 3711 /hpf (0-3); Specific Gravity,Urine 1.023 (1.001-1.035); Squamous Epithelial Cell,Urine 9 /hpf (0-5); Urobilinogen,Urine Negative mg/dL (0.0-1.0); WBC,Urine 15 /hpf (0-5)
[2025-07-31 14:17] LABS: Color,Urine Lt-Red (Lt Yel-Yel)
[2025-07-31 16:06] LABS: Lactate (Lactic Acid) 0.7 mMol/L (0.4-2.0)
[2025-07-31] MEDS: cefTRIAXone 2 GM in SODIUM CHLORIDE 0.9% (Popper) 50 ML IV (16:54)
[2025-07-31 17:38] LABS: Influenza A Ag Negative; Influenza B Ag Negative; Strep A Rapid Negative (Negative)
--- NOTE | 2025-07-31 17:40 | PD.EDRME ---
Rapid Medical Screening Exam RME Arrival date/time: 07/31/25 12:20 This is a case of 55-year-old female who came into the emergency room due to generalized weakness headache dizziness with the vaginal bleeding with heavy clots for 1 month persistence of the symptoms this patient decided to start consulted in the emergency room Chief Complaint: Weakness Time Seen by Provider: 07/31/25 12:35 Vital signs: Vital Signs Temperature 98.6 F 07/31/25 12:48 Pulse Rate 110 H 07/31/25 12:48 Respiratory Rate 16 07/31/25 12:48 Blood Pressure 107/58 L 07/31/25 12:48 Pulse Oximetry (%) 98 07/31/25 12:48 Oxygen Delivery Method Room Air 07/31/25 12:48 Exam: Abdominal exam is benign nonsurgical no guarding no rebound no rigidity neurological exam is normal awake alert oriented x 4 no focal deficit GCS 15/15 steady gait Clinical Impression: Generalized weakness abnormal vaginal bleeding
--- NOTE | 2025-07-31 18:03 | PD.EDADULT ---
ED General RME/HPI General Chief complaint: Weakness Stated complaint: FEELS LIKE SHE'S SHAWN TO PASS OUT, WEAK Time Seen by Provider: 07/31/25 12:35 Arrival date/time: 07/31/25 12:20 CC: Weakness and dysfunctional uterine bleeding HPI patient has been bleeding for the last 30 days, prior to this last menstrual schedule the patient was bleeding 25 days. No prior history of similar episodes patient is a G2, P1 with an IUD. States that she has been worked up by her PCP at [facility]. Patient denies chest pain fever chills shortness of breath cough difficulty breathing nausea or vomiting. RME / HPI RME / HPI narrative: 07/31/25 12:20 This is a case of 55-year-old female who came into the emergency room due to generalized weakness headache dizziness with the vaginal bleeding with heavy clots for 1 month persistence of the symptoms this patient decided to start consulted in the emergency room Exam: Abdominal exam is benign nonsurgical no guarding no rebound no rigidity neurological exam is normal awake alert oriented x 4 no focal deficit GCS 15/15 steady gait Impression: Generalized weakness abnormal vaginal bleeding Related Data Home Medications ?Medication ?Instructions ?Recorded ?Confirmed buspirone 10 mg tablet 2.5 mg PO TID PRN anxiety 12/10/19 03/22/25 atomoxetine 40 mg capsule 40 mg PO QDAY 03/20/25 03/22/25 buspirone 5 mg tablet 10 mg PO HS 03/20/25 03/22/25 Held on 03/23/25. Instructions: Resume on 03/24/25. cetirizine 10 mg tablet 10 mg PO BID 03/20/25 03/22/25 esomeprazole magnesium 40 mg 40 mg PO QDAY 03/20/25 03/22/25 capsule,delayed release fluticasone furoate 100 1 inh inhalation QDAY 03/20/25 03/22/25 mcg/actuation blister powder for inhalation (Arnuity Ellipta) propranolol 10 mg tablet 10 mg PO HS PRN anxiety 03/20/25 03/22/25 spironolactone 50 mg tablet 50 mg PO QDAY 03/20/25 03/22/25 semaglutide (weight loss) 1.7 1.7 mg subcut Q7D 03/23/25 03/23/25 mg/0.75 mL subcutaneous pen injector (Wegovy) Previous Rx's ?Medication ?Instructions ?Recorded drospirenone 3 mg-ethinyl 1 tab PO QDAY Dysfunctional 07/31/25 estradiol 0.03 mg tablet (Liz uterine bleeding #14 tabs (28)) Allergies Allergy/AdvReac Type Severity Reaction Status Date / Time Influenza Virus Vaccines Allergy Severe Hives Verified 07/31/25 12:24 Review of Systems Review of Systems Narrative Review of Systems: GEN: No fever, no chills, no weight loss EYES: No discharge, no visual changes, no pain HEENT: No ear pain, no congestion, no sore throat PULM: No shortness of breath, no cough, no congestion CV: No chest pain, no dyspnea on exertion, no palpitations GI: No nausea, no vomiting, no diarrhea, no pain, no constipation : No frequency, no urgency, no dysuria MUSC/SKEL: No joint pain, no back pain SKIN: No rash PSYCH: No hallucinations, no depression HEME/LYMPH: No easy bleeding or bruising tendencies NEURO: + weakness, no headache Past Medical History Past Medical History NEUROLOGIC: Negative Neurological Disorders or Seizures CARDIAC: Negative Cardiac Disorders or Congestive Heart Failure RESPIRATORY: Negative Chronic Obstructive Pulmonary Disease (COPD) or Asthma GASTROINTESTINAL: Positive Gastrointestinal Disorders, Gall Bladder Disease, Hiatal Hernia and Gastroesophageal Reflux Disease GENITOURINARY: Negative Genitourinary Disorders or Renal Disease REPRODUCTIVE: Positive Previous Pregnancies; Negative Endometriosis, Genital Herpes, Gonorrhea, Pelvic Inflammatory Disease, Syphilis or Uterine Prolapse MUSCULOSKELETAL: Negative Musculoskeletal Disorders ENDOCRINE: Negative Endocrine Disorders, Diabetes Mellitus Type 1 or Diabetes Mellitus Type 2 HEMATOLOGIC: Positive Blood Disorders and Anemia; Negative Leukemia, Hemophilia, Thalassemia, Sickle Cell Disease or Clotting Problems PSYCHO/SOCIAL: Positive Psychiatric Problems, Bipolar Disorder, Depression, Anxiety, Attention Deficit Hyperactivity Disorder and Post Traumatic Stress Disorder OTHER HISTORY: Negative Hospitalization, Autoimmune Disease, Down Syndrome, Developmental Delay, Shingles, Falls, Blood Transfusions or Anesthesia Reactions Family History FAMILY HISTORY: Positive Family Psychiatric Problems and Family Gastrointestinal Problems; Negative Family Respiratory Disorders, Family Cardiac Disorders, Family Cancer, Family Surgery or Family Anesthesia Reaction Surgical History SURGICAL: Negative Section Social History SMOKING STATUS: Current some day smoker SECOND HAND EXPOSURE: No SUBSTANCE USE: marijuana (mother states she hasnt had any etoh since being on probation ) ED Exam Narrative Physical exam: [General: Not in any acute distress Head normocephalic HEENT: Within acceptable limits Neck is supple nontender Chest equal chest rise nontender to palpation Respiratory: Clear to auscultation no wheezes crackles or rubs CV: Rate rhythm is regular no murmurs rubs or clicks Abdomen is distended secondary to body habitus soft nontender no masses positive bowel sounds all 4 quadrants Back: No CVA tenderness no spinous process tenderness from cervical spine thoracic and lumbar spine Skin: Pale, intact no petechiae rash induration ulceration or crepitus Extremities: Moving all extremity against resistance cap refill less than 2 seconds neurosensory intact Neuro: Awake alert oriented x3 Glascow coma 15 no focal deficits] Course Course Course Narrative: Patient's case discussed with Dr Newell CAFE AIDE who recommends the patient probably has a copper IUD that needs to be changed out to Mirena to minimize the bleeding in the meantime the patient can be put on the taper BCP to follow-up with her CAFE AIDE. Quality Measures none Orders Category Date Time Status EKG (ED ONLY) *Do not use* NOW Care 07/31/25 12:58 Completed EKG (ED Only) Stat Exams 07/31/25 12:58 Draft US transvaginal Stat Exams 07/31/25 12:58 Completed XR chest 1V Stat Exams 07/31/25 12:58 Completed BNP [B-Type Natriuretic Peptide] Stat Lab 07/31/25 13:21 Completed CBC Stat Lab 07/31/25 13:21 Completed Comprehensive Metabolic Panel Stat Lab 07/31/25 13:21 Completed HCG Qualitative,Urine Stat Lab 07/31/25 13:30 Completed Influenza A & B Rapid Panel Stat Lab 07/31/25 16:54 Completed Lactic Acid [Lactate (Lactic Acid)] Stat Lab 07/31/25 15:55 Completed Strep A Rapid Stat Lab 07/31/25 16:54 Completed Troponin I Stat Lab 07/31/25 13:21 Completed Type and Screen Stat Lab 07/31/25 15:55 Completed Urinalysis Stat Lab 07/31/25 13:30 Completed prbc [Red Blood Cells] Stat Lab 07/31/25 15:55 Completed cefTRIAXone [Rocephin] 2 gm Med 07/31/25 15:47 Discontinued SODIUM CHLORIDE 0.9% (Popper) [Ns 0.9% (P)] 50 ml IV X1 Vital Signs Vital signs: Vital Signs Temperature 98.6 F 07/31/25 12:48 Pulse Rate 110 H 07/31/25 12:48 Respiratory Rate 16 07/31/25 12:48 Blood Pressure 107/58 L 07/31/25 12:48 Pulse Oximetry (%) 98 07/31/25 12:48 Oxygen Delivery Method Room Air 07/31/25 12:48 Discharge Plan Plan Patient Disposition: HOME (Self Care) Patient condition on transfer: Stable Prescriptions/Referrals Prescriptions/Med Rec: New drospirenone-ethinyl estradiol [Liz (28)] 3-0.03 mg tablet 1 tab PO QDAY Qty: 14 0RF No Action buspirone 10 mg Tablet 2.5 mg PO TID PRN (Reason: anxiety) atomoxetine 40 mg capsule 40 mg PO QDAY Patient Comments: Take 2 capsule by mouth once a day Arnuity Ellipta 100 mcg/actuation blister with device 1 inh INHALATION QDAY Patient Comments: INHALE 1 PUFF INTO THE LUNGS EVERY DAY FOR 30 DAYS buspirone 5 mg tablet 10 mg PO HS propranolol 10 mg tablet 10 mg PO HS PRN (Reason: anxiety) esomeprazole magnesium 40 mg capsule,delayed release(DR/EC) 40 mg PO QDAY Patient Comments: TAKE 1 CAPSULE BY MOUTH EVERY DAY 1/2 TO 1 HOUR BEFORE MORNING MEAL cetirizine 10 mg tablet 10 mg PO BID Patient Comments: TAKE 1 TABLET BY MOUTH TWICE A DAY spironolactone 50 mg tablet 50 mg PO QDAY Wegovy 1.7 mg/0.75 mL pen injector 1.7 mg SUBCUT Q7D Patient Comments: INJECT 0.75 MILLILITERS SUBCUTANEOUSLY ONE TIME PER WEEK Referrals: Bridger Barnett PA-C [Primary Care Provider] - In 1 week Problem List Clinical Impression: Anemia, Bleeding, uterine, dysfunctional Patient/Caregiver Discharge Instructions Education Materials: Anemia, ED Dysfunctional Uterine Bleeding Additional Instructions: Take the medications as prescribed follow-up with your CAFE AIDE or your family health health care social worker suggest you change out your IUD to Mirena. Print Language: Cymro Stand Alone Forms: Nany Award Info., Work/School Release, Patient Portal Info Letter PA/MEREDITH Supervising Physician PA/MACHINE CLOTHING WORKER Supervising Physician: Salvatore Duggan ENP MDM EKG Interpretation EKG #1: EKG Interpretation: EKG performed at 1310 shows a ventricular rate of 104 WA interval 132 QRS of 82 QTc of 376 is sinus tachycardia. Labs Lab(s) Interpretation(s): CBC shows leukocytosis of 16.6 and H&H of 7.4 and 24.9 respectively. MCV of 72 MCH of 21 MCHC of 29.7. Platelets within acceptable limits CMP shows no significant electrolyte imbalances renal impairment transaminitis or T. bili elevation Lactic acid is 0.7 Troponin is unremarkable BNP is negative Urine is light red 3+ blood no bacteria leukocyte esterase positive Influenza is negative strep is negative. Imaging Imaging interpretation: interpreted by me Imaging Interpretation(s): Trans fat shows an anteverted uterus with IUD. Chest x-ray is negative for any acute finding. Medication Administration(s) Medication Administration History Discontinued Medications Ceftriaxone Sodium 2 gm/ (Sodium Chloride) 50 mls @ 100 mls/hr IV X1 ONE Stop: 07/31/25 16:16 Last Infusion: 07/31/25 18:03 Dose: Infused Documented By: Admin: 07/31/25 16:54 Dose: 100 mls/hr Documented By: DESTINY
--- NOTE | 2025-07-31 19:57 | PC.NURSE ---
Salvatore TEAM LEAD aware temp 100.6 and HR 113 after blood transfusion, no new orders received, per Salvatore TEAM LEAD ok to discharge home.
== END 2025-07-31 20:02 | disposition home or self-care (01) ==
PROVIDERS: Nurse Practitioner Family; Emergency Provider Emergency Medicine; PCP Physician Assistant
DX: D64.9 Anemia, unspecified (principal)
CPT/HCPCS: 36415; 71045; 76830; 80053; 81001; 81025; 83605; 83880; 84484; 85025; 86850; 86900; 86901; 86923; 87502; 87651; 93005; 96365; 99284; J0696; J7050; P9016

== ENCOUNTER 2025-08-03 15:10 | Emergency (ER) | payer MEDICAID, SELFPAY ==
[2025-08-03 15:11] VITALS: BMI 29.9
[2025-08-03 15:43] VITALS: BP 127/82; PULSE 93; RESP 18; TEMP 37.2; O2SAT 99
--- NOTE | 2025-08-03 15:53 | EKG_ITS ---
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
--- NOTE | 2025-08-03 15:53 | XR_ITS ---
Examination: Pelvic ultrasound, transabdominal, complete Technique: Transabdominal ultrasound of the pelvis performed using grayscale imaging Date and time of exam: 08/03/2025, 3:59 p.m. INDICATION: Confirm IUD position. COMPARISON: Transvaginal pelvic ultrasound 07/31/2025. FINDINGS: Redemonstration of anteverted uterus with well-positioned IUD at the uterine fundus. No uterine fibroids. Both ovaries are visualized, measuring up to 4 cm on the right and 3.4 cm on the left. Both ovaries demonstrate intact blood flow on color Doppler. Redemonstration of bilateral ovarian follicles including dominant anechoic cyst in the right ovary measuring 2.9 x 2.6 x 1.1 cm., Previously measured at 4.0 x 2.6 x 2.9 cm. No adnexal mass. No free pelvic fluid. IMPRESSION: IUD remains in appropriate position at the uterine fundus. Intact bilateral ovarian blood flow. Interval decrease in size of previously seen dominant right ovarian cyst.
--- NOTE | 2025-08-03 15:53 | PD.EDRME ---
Rapid Medical Screening Exam RME Arrival date/time: 08/03/25 15:10 25-year-old female presents to the Emergency Department today for complaints of pelvic pain patient was confirmed IUD placement and patient report generalized weakness Chief Complaint: Urogenital-Female Time Seen by Provider: 08/03/25 15:46 Vital signs: Vital Signs Temperature 99 F 08/03/25 15:43 Pulse Rate 93 08/03/25 15:43 Respiratory Rate 18 08/03/25 15:43 Blood Pressure 127/82 08/03/25 15:43 Pulse Oximetry (%) 99 08/03/25 15:43 Oxygen Delivery Method Room Air 08/03/25 15:43 Vital signs reviewed by provider: Yes Exam: On exam patient well-appearing patient does not appear toxic patient does report pelvic pain and generalized fatigue Clinical Impression: Labs imaging ordered
[2025-08-03 16:59] LABS: Basophils # (Auto) 0.1 Thou/mm3 (0.0-0.2); Basophils % (Auto) 1 % (0-2.5); Eosinophils # (Auto) 0.3 Thou/mm3 (0.0-0.5); Eosinophils % (Auto) 2 % (0-10); Hematocrit 28.4 % (36.0-46.0); Hemoglobin 8.9 g/dL (12.0-16.0); Immature Granulocytes Auto 0.16 Thou/mm3 (0.00-0.00); Lymphocytes # (Auto) 3.1 Thou/mm3 (1.0-4.8); Lymphocytes % (Auto) 22 % (10-50); Mean Corpuscular HGB Conc 31.3 g/dl (31.0-37.0); Mean Corpuscular Hemoglobin 23.0 pg (25.0-35.0); Mean Corpuscular Volume 73 fL (80-100); Monocytes # (Auto) 0.8 Thou/mm3 (0.0-0.8); Monocytes % (Auto) 5 % (0-12); Neutrophils # (Auto) 9.7 Thou/mm3 (1.8-7.7); Neutrophils % (Auto) 69 % (37-80); Nucleated Red Blood Cell # 0.00 Thou/mm3 (0.00-0.00); Nucleated Red Blood Cell % 0 /100 WBC (0); Platelet Count 460 Thou/mm3 (140-440); RDW Standard Deviation 42.4 fL (36.4-46.3); Red Blood Count 3.87 Miln/mm3 (4.00-5.20); White Blood Count 14.1 Thou/mm3 (3.6-11.0)
[2025-08-03 17:12] LABS: INR 1.0 (0.9-1.3); Partial Thromboplastin Time 29.9 Seconds (22.0-36.0); Prothrombin Time 10.7 Seconds (9.0-12.2)
[2025-08-03 17:14] LABS: Collection Type, Urine Clean Catch
[2025-08-03 17:14] LABS: B-Type Natriuretic Peptide < 20 pg/mL (0-100)
[2025-08-03 17:15] LABS: Alanine Aminotransferase 13 U/L (10-49); Albumin, Serum 5.0 gm/dL (3.5-5.0); Albumin/Globulin Ratio 2.4 (1.2-2.2); Alkaline Phosphatase 63 U/L (46-116); Anion Gap 8 (7-16); Aspartate Amino Transferase 17 U/L (0-34); BUN/Creatinine Ratio 14 Ratio (12-20); Bilirubin,Total 0.3 mg/dL (0.3-1.2); Blood Urea Nitrogen 11 mg/dL (9-23); Calcium 9.6 mg/dL (8.3-10.6); Calcium (Corrected) 9.6 mg/dL (8.5-10.1); Carbon Dioxide 24.6 mMol/L (20.0-31.0); Chloride 107 mMol/L (98-107); Creatinine (Component) 0.8 mg/dL (0.6-1.3); Estimated Creatinine Clearance 111.5 mL/min (>60); Globulin 2.1 gm/dL (2.3-3.5); Glucose 96 mg/dL (74-106); Magnesium 2.2 mg/dL (1.6-2.6); Osmolality,Calculated 278 (275-295); Potassium 4.1 mMol/L (3.4-5.1); Sodium 140 mMol/L (136-145); Total Protein 7.1 gm/dL (5.7-8.2); Troponin I < 0.002 ng/mL (0.0-0.045); eGFR > 60 See Note
[2025-08-03 17:27] LABS: HCG Qualitative,Urine Negative
[2025-08-03 17:31] LABS: Bacteria,Urine 1+; Bilirubin,Urine Negative (Negative); Blood,Urine 1+ (Negative); Color,Urine Colorless (Lt Yel-Yel); Culture Indicated,Urine Contaminated; Glucose, Urine Negative (Negative); Ketones,Urine Negative (Negative); Leukocyte Esterase,Urine Positive (Negative); Nitrite,Urine Negative (Negative); PH,Urine 6.0 (5.0-7.0); Protein,Urine Negative (Neg - Trace); RBC,Urine 8 /hpf (0-3); Specific Gravity,Urine 1.007 (1.001-1.035); Squamous Epithelial Cell,Urine 28 /hpf (0-5); Urobilinogen,Urine Negative mg/dL (0.0-1.0); WBC,Urine 29 /hpf (0-5)
[2025-08-03 17:50] LABS: Clarity,Urine Hazy (Clear/Hazy)
--- NOTE | 2025-08-03 18:01 | PD.EDFMALE ---
ED Female Urogenital RME/HPI General Chief complaint: Urogenital-Female Stated complaint: I THINK MY IUD IS POKING ME TODAY Time Seen by Provider: 08/03/25 15:46 Arrival date/time: 08/03/25 15:10 25-year-old female patient came in for evaluation regarding left-sided pelvic pain. Patient noticed it today, felt like her IUD is poking on her. She denies any dysuria frequency fever vomiting or other complaints. No medication was taken prior to arrival. RME / HPI RME / HPI Narrative: 08/03/25 15:10 25-year-old female presents to the Emergency Department today for complaints of pelvic pain patient was confirmed IUD placement and patient report generalized weakness Exam: On exam patient well-appearing patient does not appear toxic patient does report pelvic pain and generalized fatigue Impression: Labs imaging ordered Related Data Home Medications ?Medication ?Instructions ?Recorded ?Confirmed buspirone 10 mg tablet 2.5 mg PO TID PRN anxiety 12/10/19 03/22/25 atomoxetine 40 mg capsule 40 mg PO QDAY 03/20/25 03/22/25 buspirone 5 mg tablet 10 mg PO HS 03/20/25 03/22/25 Held on 03/23/25. Instructions: Resume on 03/24/25. cetirizine 10 mg tablet 10 mg PO BID 03/20/25 03/22/25 esomeprazole magnesium 40 mg 40 mg PO QDAY 03/20/25 03/22/25 capsule,delayed release fluticasone furoate 100 1 inh inhalation QDAY 03/20/25 03/22/25 mcg/actuation blister powder for inhalation (Arnuity Ellipta) propranolol 10 mg tablet 10 mg PO HS PRN anxiety 03/20/25 03/22/25 spironolactone 50 mg tablet 50 mg PO QDAY 03/20/25 03/22/25 semaglutide (weight loss) 1.7 1.7 mg subcut Q7D 03/23/25 03/23/25 mg/0.75 mL subcutaneous pen injector (Wegovy) Previous Rx's ?Medication ?Instructions ?Recorded drospirenone 3 mg-ethinyl 1 tab PO QDAY Dysfunctional 07/31/25 estradiol 0.03 mg tablet (Liz uterine bleeding #14 tabs (28)) Allergies Allergy/AdvReac Type Severity Reaction Status Date / Time Influenza Virus Vaccines Allergy Severe Hives Verified 08/03/25 15:13 Review of Systems Review of Systems Narrative Review of Systems: Review of system reviewed and within normal limits except mentioned in HPI ED Exam Narrative Physical exam: VITAL SIGNS: Reviewed. GENERAL APPEARANCE: Alert and interactive, follows commands, no acute distress, HEAD AND FACE: Non-traumatic. ENT: PERRL, pink conjunctivitis, eyelid no trauma, Mucous membrane moist. NECK: Supple, nontender, no nuchal rigidity. CHEST: No tenderness, no crepitus, no paradoxical movement, no retractions. LUNGS: Clear, well ventilated, symmetric, no rales, no wheezing, no ronchi, no stridor, good breath sounds bilaterally. HEART: Regular rate, regular rhythm, no murmur, no gallops. ABDOMEN: Soft, positive bowel sounds, nondistended, no guarding, nontender, no rebound, no masses, RECTAL: Deferred. GENITAL: Deferred. NEUROLOGICAL: Gross motor function intact sensory function intact, Appropriate for age. MUSCULOSKELETAL: low back nontender, full range of motion. EXTREMITIES: Nontender, full range of motion. SKIN: Color pink, dry, no rash, no lacerations, no abrasions, no contusions. LYMPHATICS: Deferred. Course Quality Measures none Orders Category Date Time Status EKG (ED ONLY) *Do not use* NOW Care 08/03/25 15:53 Completed EKG (ED Only) Stat Exams 08/03/25 15:53 Draft US pelvic complete Stat Exams 08/03/25 15:53 Completed B-Type Natriuretic Peptide Stat Lab 08/03/25 16:30 Completed CBC Stat Lab 08/03/25 16:30 Completed Comprehensive Metabolic Panel Stat Lab 08/03/25 16:30 Completed HCG Qualitative,Urine Stat Lab 08/03/25 16:51 Completed Magnesium Stat Lab 08/03/25 16:30 Completed Partial Thromboplastin Time Stat Lab 08/03/25 16:30 Completed Prothrombin Time with INR Stat Lab 08/03/25 16:30 Completed Troponin I Stat Lab 08/03/25 16:30 Completed Urinalysis, C/S if Indicated Stat Lab 08/03/25 16:51 Completed Vital Signs Vital signs: Vital Signs Temperature 99 F 08/03/25 15:43 Pulse Rate 93 08/03/25 15:43 Respiratory Rate 18 08/03/25 15:43 Blood Pressure 127/82 08/03/25 15:43 Pulse Oximetry (%) 99 08/03/25 15:43 Oxygen Delivery Method Room Air 08/03/25 15:43 Urogenital - Female [facility] Narrative [facility] Narrative:: 25-year-old female patient came in for evaluation regarding left-sided pelvic pain. Patient noticed it today, felt like her IUD is poking on her. She denies any dysuria frequency fever vomiting or other complaints. No medication was taken prior to arrival. Patient workup today came back unremarkable except for slight leukocytosis urinalysis is a contaminated. Patient is not showing any sign of UTI. Patient's IUD also is in the right position. Patient results discussed with her. Patient told me that she will have her IUD removed pretty soon since she is not sexually active. Stable discharge home Patient data External records reviewed:: None Clinical information provided by:: patient Social determinants that could affect healthcare access:: none Patient has the following chronic illnesses:: None How is presenting disease/condition affected by chronic disease/condition?: no chronic disease Evaluation data The following diagnostics were reviewed and interpreted by me:: lab results and radiology exam(s) Lab and/or radiology exams considered but not ordered:: None Interpretation Summary: See MDM Medications / Prescriptions Medications or Prescriptions considered but not ordered:: None Medication administrations:: None Consultations Consultation(s) initiated? (list below): No Diagnosis Urogenital Female Differential Diagnosis: urinary tract infection and other (Pelvic pain, issues with IUD) Most likely diagnosis given after review of the tests above:: Pelvic pain Admission Indicated Admission indicated?: not indicated Admission Request Was there a request for admission?: No Disposition Plan Disposition Plan: Discharge Discharge Attestation Discharge Attestation: The patient was given an opportunity to ask questions and understood the discharge instructions. Discharge instructions specifically effects, indications for sooner follow up or return to the emergency department, and the expected course of current diagnosis. Patient condition: Stable Discharge Plan Plan Patient Disposition: HOME (Self Care) Discharge Disposition comment: Stable Prescriptions/Referrals Prescriptions/Med Rec: No Action buspirone 10 mg Tablet 2.5 mg PO TID PRN (Reason: anxiety) atomoxetine 40 mg capsule 40 mg PO QDAY Patient Comments: Take 2 capsule by mouth once a day Arnuity Ellipta 100 mcg/actuation blister with device 1 inh INHALATION QDAY Patient Comments: INHALE 1 PUFF INTO THE LUNGS EVERY DAY FOR 30 DAYS buspirone 5 mg tablet 10 mg PO HS propranolol 10 mg tablet 10 mg PO HS PRN (Reason: anxiety) esomeprazole magnesium 40 mg capsule,delayed release(DR/EC) 40 mg PO QDAY Patient Comments: TAKE 1 CAPSULE BY MOUTH EVERY DAY 1/2 TO 1 HOUR BEFORE MORNING MEAL cetirizine 10 mg tablet 10 mg PO BID Patient Comments: TAKE 1 TABLET BY MOUTH TWICE A DAY spironolactone 50 mg tablet 50 mg PO QDAY Wegovy 1.7 mg/0.75 mL pen injector 1.7 mg SUBCUT Q7D Patient Comments: INJECT 0.75 MILLILITERS SUBCUTANEOUSLY ONE TIME PER WEEK drospirenone-ethinyl estradiol [Liz (28)] 3-0.03 mg tablet 1 tab PO QDAY Qty: 14 0RF Referrals: No Primary/Family,Physician [Primary Care Provider] - In 1 week Problem List Clinical Impression: Pelvic pain Patient/Caregiver Discharge Instructions Discharge Activity: activity as tolerated Education Materials: Understanding the Pain Response Additional Instructions: Thank you for the opportunity for serving you today. You are stable for discharged . You are advised to: Follow-up with your PCP in 1 to 2 days Return to ED for worsening of symptoms Increase oral fluids Take [id number] Tylenol or Motrin as needed for pain Print Language: Kittitian Stand Alone Forms: Nany Award Info., Patient Portal Info Letter PA/MEREDITH Supervising Physician PA/MEREDITH Supervising Physician: MD Gal
== END 2025-08-03 18:15 | disposition home or self-care (01) ==
PROVIDERS: Emergency Provider Nurse Practitioner Primary Care
DX: R10.22 Pelvic and perineal pain left side (principal)
CPT/HCPCS: 36415; 76856; 80053; 81001; 81025; 83735; 83880; 84484; 85025; 85610; 85730; 93005; 99283